=== PATIENT | female | born 1970 | race Caucasian/White ===

== ENCOUNTER 2016-09-14 09:29 | Emergency (ER) | payer MEDICAID ==
[~2016-09-14] VITALS: Ht 167.6 cm; Wt 84.0 kg
[~2016-09-14 09:29] MED LIST: AMLO-511 PO; LIB25 PO; METO-296 PO; SERT100T12 PO; TRAZ150 PO
[2016-09-14] MEDS ORDERED: ONDA4 PO (09:55)
[2016-09-14] MEDS ORDERED: SODIUM CHLORIDE 0.9% 1,000 ML IV ONE (10:45)
[2016-09-14 10:59] LABS: BASOPHILS % (AUTO) 1.3 % (0.0-2.0); HEMATOCRIT 36.5 % (36-46); HEMOGLOBIN 12.1 g/dL (12.0-16.0); LYMPHOCYTES # (AUTO) 1.6 K/uL (1.0-4.8); LYMPHOCYTES % (AUTO) 16.4 % (22.0-44.0); MEAN CORPUSCULAR HEMOGLOBIN 29.6 pg (26.0-34.0); MEAN CORPUSCULAR HGB CONC 33.2 G/dL (31.0-37.0); MEAN CORPUSCULAR VOLUME 89 fL (80-100); MONOCYTES % (AUTO) 10.5 % (2.0-9.0); NEUTROPHILS # (AUTO) 6.7 K/uL (1.8-7.7); NEUTROPHILS % (AUTO) 69.8 % (40.0-70.0); PLATELET COUNT (AUTO) 313 K/uL (150-450); RED BLOOD CELL COUNT(AUTO) 4.08 MIL/uL (4.00-5.20); RED CELL DISTRIBUTION WIDTH 15.5 % (11.5-14.5); WHITE BLOOD COUNT (AUTO) 9.6 K/uL (4.5-11.0)
[2016-09-14 11:12] LABS: ANION GAP 6 mmol/L (8-16); CALCIUM, TOTAL 8.9 mg/dL (8.8-10.5); CARBON DIOXIDE 29 mmol/L (22-29); CHLORIDE 102 mmol/L (98-107); CREATININE 0.71 mg/dL (0.60-1.30); GLOMERULAR FILTR. RATE CALC > 60 mL/min (>60); SODIUM SERUM 137 mmol/L (136-145); UREA NITROGEN, BLOOD 8 mg/dL (7-18)
[2016-09-14 11:18] LABS: ALANINE AMINOTRANSFERASE 122 U/L (12-78); ALBUMIN 3.3 g/dL (3.4-5.0); ASPARTATE AMINOTRANSFERASE 226 U/L (15-37); BILIRUBIN,TOTAL 0.4 mg/dL (0.1-1.0); TOTAL PROTEIN, SERUM 7.9 g/dL (6.4-8.2)
[2016-09-14 11:59] LABS: ADD UA MICROSCOPIC YES; APPEARANCE,URINE CLOUDY (CLEAR); GLUCOSE, URINE (UA) NEGATIVE (NEGATIVE); KETONES,URINE NEGATIVE (NEGATIVE); LEUKOCYTE ESTERASE ,URINE TRACE (NEGATIVE); OCCULT BLOOD,URINE NEGATIVE (NEGATIVE); PROTEIN,URINE NEGATIVE (NEGATIVE)
[2016-09-14 12:07] LABS: RBC,URINE None Seen /HPF (0-2); SQUAMOUS EPITHELIAL CELL,UR Moderate /LPF (None Seen)
[2016-09-14] MEDS ORDERED: ChlordiazePOXIDE HCL 25 MG CAPSULE PO ONE (12:45)
[2016-09-14 13:01] VITALS: BP 120/88
== END 2016-09-14 13:15 | disposition home or self-care (01) ==
LOC: EMS 09:33
DX: R56.9 Unspecified convulsions (principal); R41.82 Altered mental status, unspecified; F10.239 Alcohol dependence with withdrawal, unspecified; R25.1 Tremor, unspecified; I10 Essential (primary) hypertension; Z88.1 Allergy status to other antibiotic agents; Z88.8 Allergy status to other drugs, medicaments and biological substances; Y90.0 Blood alcohol level of less than 20 mg/100 ml
CPT/HCPCS: 36415; 70450; 80053; 80307; 81001; 85025; 96360; 99285; G0480; J7030

== ENCOUNTER 2022-03-24 19:15 | Inpatient (IN) | payer OTHER, MEDICAID ==
[~2022-03-24] VITALS: Ht 157.5 cm; Wt 94.1 kg
[~2022-03-24 19:15] MED LIST changes: +AMLO-257 PO; -AMLO-511 PO; -METO-296 PO; +ONDA-104 PO; +SERT-162 PO; -SERT100T12 PO; -TRAZ150 PO; +TRAZ150T80 PO
[2022-03-24 19:30] VITALS: BP 144/80
[2022-03-24] MEDS ORDERED: HYDRALAZINE CONTIV (20:55)
[2022-03-24] MEDS ORDERED: [UNRECOGNIZED DRUG - OTHER] CHEW (20:55)
[2022-03-24] MEDS ORDERED: QUET25TA PO (20:55)
[2022-03-24] MEDS ORDERED: LASIX CONTIV (20:55)
[2022-03-24] MEDS ORDERED: GEODON CHEW (20:55)
[2022-03-24] MEDS ORDERED: FOLI-130 GT (20:55)
[2022-03-24] MEDS ORDERED: DIAZ5TAB5 PO (20:55)
[2022-03-24] MEDS ORDERED: THIA100T92 GT (20:55)
[2022-03-24] MEDS ORDERED: INSLAN SQ (20:55)
[2022-03-24] MEDS ORDERED: [UNRECOGNIZED DRUG - REMARK] CERV (20:55)
[2022-03-24] MEDS ORDERED: LABETALOL CERV (20:55)
[2022-03-24] MEDS ORDERED: ENOX40SY14 SQ (20:55)
[2022-03-24] MEDS ORDERED: [UNRECOGNIZED DRUG - OTHER] CONTIV (20:55)
[2022-03-24] MEDS ORDERED: SOLUMEDROL CAUDAL (20:55)
[2022-03-24] MEDS ORDERED: [UNRECOGNIZED DRUG - OTHER] CONTEPI (20:55)
[2022-03-24] MEDS ORDERED: [UNRECOGNIZED DRUG - OTHER] CAUDAL SCH (21:00)
[2022-03-24] MEDS: QUEtiapine FUMARATE 25 MG TABLET PO SCH ×2 (21:00→21:49)
[2022-03-24] MEDS: INSULIN GLARGINE,HUM.REC.ANLOG 100 UNITS/ML SQ SCH (21:00)
[2022-03-24] MEDS: DIAZEPAM 5 MG TABLET PO SCH ×2 (21:00→21:49)
[2022-03-24] MEDS ORDERED: DEXTROSE 50%-WATER 25 GM/50 ML SYRINGE IVP PRN (21:15)
[2022-03-24] MEDS: INSULIN LISPRO 100 UNITS/ML SQ PRN (21:46)
[2022-03-24] MEDS: MethylPREDNISolone SOD SUCC 40 MG/ML VIAL IVP SCH (21:50)
[2022-03-24] MEDS ORDERED: [UNRECOGNIZED DRUG - OTHER] CONTEPI SCH (22:00)
[2022-03-24] MEDS ORDERED: [UNRECOGNIZED DRUG - OTHER] CONTIV SCH (22:00)
[2022-03-24 22:01] LABS: GLUCOMETER DEV NAME(LOC) 5N.3; GLUCOSE,POINT OF CARE 115 MG/DL (70-110)
[2022-03-24 22:21] LABS: BASOPHILS % (AUTO) 0.3 % (0.0-2.0); EOSINOPHILS % (AUTO) 0.5 % (1.0-6.0); HEMATOCRIT 40.9 % (36-46); LYMPHOCYTES # (AUTO) 1.9 K/uL (1.0-4.8); LYMPHOCYTES % (AUTO) 10.1 % (22.0-44.0); MEAN CORPUSCULAR HGB CONC 34.2 G/dL (31.0-37.0); MEAN CORPUSCULAR VOLUME 94 fL (80-100); MONOCYTES # (AUTO) 1.5 K/uL (0.1-1.0); NEUTROPHILS % (AUTO) 81.1 % (40.0-70.0); PLATELET COUNT (AUTO) 293 K/uL (150-450); RED BLOOD CELL COUNT(AUTO) 4.36 MIL/uL (4.00-5.20); RED CELL DISTRIBUTION WIDTH 14.1 % (11.5-14.5)
[2022-03-24 22:37] LABS: ANION GAP 9 mmol/L (8-16); CALCIUM, TOTAL 9.1 mg/dL (8.8-10.5); CARBON DIOXIDE 26 mmol/L (22-29); CHLORIDE 100 mmol/L (98-107); CREATININE 0.66 mg/dL (0.60-1.30); GLUCOSE,RANDOM 122 mg/dL (70-110); POTASSIUM 3.5 mmol/L (3.5-5.1); SODIUM SERUM 135 mmol/L (136-145); UREA NITROGEN, BLOOD 32 mg/dL (7-18)
[2022-03-24 22:38] LABS: GLOMERULAR FILTR. RATE CALC > 60 mL/min (>60)
[2022-03-24] MEDS: MAGNESIUM SULFATE 2 GM, MVI, ADULT NO.1 WITH VIT K 10 ML, THIAMINE 100 MG, FOLIC ACID 1... IV SCH ×5 (22:42)
[2022-03-24 22:43] LABS: ALANINE AMINOTRANSFERASE 115 U/L (12-78); ALKALINE PHOSPHATASE 66 U/L (46-116); ASPARTATE AMINOTRANSFERASE 94 U/L (15-37); BILIRUBIN,TOTAL 0.7 mg/dL (0.1-1.0); TOTAL PROTEIN, SERUM 7.3 g/dL (6.4-8.2)
[2022-03-25] MEDS ORDERED: HEPARIN SODIUM,PORCINE 5,000 UNITS/ML VIAL SQ SCH
[2022-03-25 00:05] VITALS: BP 140/75
[2022-03-25] MEDS: MORPHINE SULFATE 2 MG/ML SYRINGE IVP PRN ×6 (00:35→21:15)
[2022-03-25 04:12] VITALS: BP 120/78
[2022-03-25 05:36] LABS: C.DIFF GDH ANTIGEN, Stool Negative (Negative); C.DIFF TOXINS A&B, Stool Negative (Negative)
[2022-03-25 05:41] LABS: GLUCOMETER DEV NAME(LOC) 5N.3; GLUCOSE,POINT OF CARE 121 MG/DL (70-110)
[2022-03-25] MEDS: CefTRIAXone 1 GM/DEXTROSE 50 ML IV SCH (06:20)
[2022-03-25 06:34] LABS: BASOPHILS % (AUTO) 0.5 % (0.0-2.0); EOSINOPHILS % (AUTO) 0.2 % (1.0-6.0); HEMATOCRIT 39.5 % (36-46); HEMOGLOBIN 13.5 g/dL (12.0-16.0); LYMPHOCYTES # (AUTO) 1.4 K/uL (1.0-4.8); LYMPHOCYTES % (AUTO) 7.8 % (22.0-44.0); MEAN CORPUSCULAR HEMOGLOBIN 32.2 pg (26.0-34.0); MEAN CORPUSCULAR HGB CONC 34.3 G/dL (31.0-37.0); MEAN CORPUSCULAR VOLUME 94 fL (80-100); MONOCYTES # (AUTO) 1.6 K/uL (0.1-1.0); MONOCYTES % (AUTO) 8.8 % (2.0-9.0); NEUTROPHILS # (AUTO) 14.6 K/uL (1.8-7.7); NEUTROPHILS % (AUTO) 82.7 % (40.0-70.0); PLATELET COUNT (AUTO) 300 K/uL (150-450); RED CELL DISTRIBUTION WIDTH 14.2 % (11.5-14.5)
[2022-03-25 06:58] LABS: ANION GAP 9 mmol/L (8-16); CALCIUM, TOTAL 8.6 mg/dL (8.8-10.5); CARBON DIOXIDE 26 mmol/L (22-29); CHLORIDE 102 mmol/L (98-107); CREATININE 0.58 mg/dL (0.60-1.30); GLUCOSE,RANDOM 128 mg/dL (70-110); POTASSIUM 3.7 mmol/L (3.5-5.1); SODIUM SERUM 137 mmol/L (136-145); UREA NITROGEN, BLOOD 29 mg/dL (7-18)
[2022-03-25] MEDS ORDERED: LOPERAMIDE HCL 2 MG/15 ML SUSPENSION UDCUP GT ONE (07:00)
[2022-03-25 07:09] LABS: GLOMERULAR FILTR. RATE CALC > 60 mL/min (>60)
[2022-03-25 07:45] VITALS: BP 131/87
[2022-03-25] MEDS: MethylPREDNISolone SOD SUCC 40 MG/ML VIAL IVP SCH (08:27)
[2022-03-25] MEDS: ENOXAPARIN SODIUM 40 MG/0.4 ML PF SYRINGE SQ SCH (08:27)
[2022-03-25] MEDS: MetroNIDAZOLE 500 MG TABLET GT SCH ×3 (08:49→21:12)
[2022-03-25] MEDS: QUEtiapine FUMARATE 25 MG TABLET PO SCH ×2 (08:49→21:13)
[2022-03-25] MEDS: FOLIC ACID 1 MG TABLET GT SCH (08:49)
[2022-03-25] MEDS: DOXYCYCLINE HYCLATE 100 MG TABLET GT SCH ×2 (08:50→21:13)
[2022-03-25] MEDS: DIAZEPAM 5 MG TABLET PO SCH ×4 (08:50→21:13)
[2022-03-25] MEDS: INSULIN GLARGINE,HUM.REC.ANLOG 100 UNITS/ML SQ SCH ×2 (08:56→22:05)
[2022-03-25] MEDS ORDERED: THIAMINE 100 MG TABLET GT SCH (09:00)
[2022-03-25] MEDS: ONDANSETRON HCL 4 MG/2 ML VIAL IVP PRN (12:04)
[2022-03-25 12:12] VITALS: BP 150/96
[2022-03-25 15:06] LABS: GLUCOMETER DEV NAME(LOC) 5S.2B; GLUCOSE,POINT OF CARE 176 MG/DL (70-110)
[2022-03-25] MEDS: LACTOBACILLUS ACIDOPHILUS/BULGARICUS GRANULES PACKET PO SCH ×2 (16:21→21:13)
[2022-03-25 16:30] VITALS: BP 138/101
[2022-03-25 20:04] VITALS: BP 129/83
[2022-03-25] MEDS: FAMOTIDINE 10 MG/ML 2 ML VIAL IVP SCH (21:13)
[2022-03-25] MEDS: MAGNESIUM SULFATE 2 GM, MVI, ADULT NO.1 WITH VIT K 10 ML, THIAMINE 100 MG, FOLIC ACID 1... IV SCH ×5 (21:56)
[2022-03-25 22:01] LABS: GLUCOMETER DEV NAME(LOC) 5S.2B; GLUCOSE,POINT OF CARE 112 MG/DL (70-110)
[2022-03-25 22:02] LABS: GLUCOMETER DEV NAME(LOC) 5S.2B; GLUCOSE,POINT OF CARE 118 MG/DL (70-110)
[2022-03-26] VITALS: BP 135/99
[2022-03-26] MEDS: MORPHINE SULFATE 2 MG/ML SYRINGE IVP PRN ×2 (01:11→14:13)
[2022-03-26 04:04] VITALS: BP 148/83
[2022-03-26] MEDS: ACETAMINOPHEN 325 MG TABLET PO PRN (05:44)
[2022-03-26] MEDS: CefTRIAXone 1 GM/DEXTROSE 50 ML IV SCH (06:28)
[2022-03-26 06:45] LABS: BASOPHILS % (AUTO) 0.3 % (0.0-2.0); EOSINOPHILS % (AUTO) 2.1 % (1.0-6.0); HEMATOCRIT 39.8 % (36-46); HEMOGLOBIN 13.5 g/dL (12.0-16.0); LYMPHOCYTES # (AUTO) 1.6 K/uL (1.0-4.8); LYMPHOCYTES % (AUTO) 10.8 % (22.0-44.0); MEAN CORPUSCULAR HEMOGLOBIN 32.1 pg (26.0-34.0); MEAN CORPUSCULAR HGB CONC 33.8 G/dL (31.0-37.0); MEAN CORPUSCULAR VOLUME 95 fL (80-100); MONOCYTES # (AUTO) 1.4 K/uL (0.1-1.0); MONOCYTES % (AUTO) 9.4 % (2.0-9.0); NEUTROPHILS # (AUTO) 11.5 K/uL (1.8-7.7); NEUTROPHILS % (AUTO) 77.4 % (40.0-70.0); PLATELET COUNT (AUTO) 280 K/uL (150-450); RED BLOOD CELL COUNT(AUTO) 4.19 MIL/uL (4.00-5.20); RED CELL DISTRIBUTION WIDTH 14.1 % (11.5-14.5)
[2022-03-26 06:58] LABS: ANION GAP 12 mmol/L (8-16); CALCIUM, TOTAL 8.6 mg/dL (8.8-10.5); CARBON DIOXIDE 22 mmol/L (22-29); CHLORIDE 104 mmol/L (98-107); CREATININE 0.55 mg/dL (0.60-1.30); GLUCOSE,RANDOM 206 mg/dL (70-110); POTASSIUM 3.3 mmol/L (3.5-5.1); SODIUM SERUM 138 mmol/L (136-145); UREA NITROGEN, BLOOD 23 mg/dL (7-18)
[2022-03-26 07:00] LABS: GLOMERULAR FILTR. RATE CALC > 60 mL/min (>60)
[2022-03-26] MEDS: FOLIC ACID 1 MG TABLET GT SCH (07:43)
[2022-03-26] MEDS: QUEtiapine FUMARATE 25 MG TABLET PO SCH ×2 (07:43→21:49)
[2022-03-26] MEDS: DIAZEPAM 5 MG TABLET PO SCH ×4 (07:43→21:49)
[2022-03-26] MEDS: ENOXAPARIN SODIUM 40 MG/0.4 ML PF SYRINGE SQ SCH (07:44)
[2022-03-26] MEDS: DOXYCYCLINE HYCLATE 100 MG TABLET GT SCH (07:44)
[2022-03-26] MEDS: MethylPREDNISolone SOD SUCC 40 MG/ML VIAL IVP SCH (07:44)
[2022-03-26] MEDS: MetroNIDAZOLE 500 MG TABLET GT SCH (07:44)
[2022-03-26] MEDS: FAMOTIDINE 10 MG/ML 2 ML VIAL IVP SCH ×2 (07:44→21:47)
[2022-03-26] MEDS: LACTOBACILLUS ACIDOPHILUS/BULGARICUS GRANULES PACKET PO SCH ×3 (07:44→21:48)
[2022-03-26] MEDS: INSULIN GLARGINE,HUM.REC.ANLOG 100 UNITS/ML SQ SCH ×2 (07:47→22:05)
[2022-03-26 08:00] VITALS: BP 150/90
[2022-03-26] MEDS: DOXYCYCLINE HYCLATE 100 MG TABLET PO SCH ×2 (09:00→21:49)
[2022-03-26] MEDS: MetroNIDAZOLE 500 MG TABLET PO SCH ×3 (09:00→21:48)
[2022-03-26] MEDS: FOLIC ACID 1 MG TABLET PO SCH (09:00)
[2022-03-26 11:10] VITALS: BP 143/86
[2022-03-26] MEDS ORDERED: FUROSEMIDE 20 MG/2 ML VIAL IVP ONE (11:30)
[2022-03-26] MEDS: ONDANSETRON HCL 4 MG/2 ML VIAL IVP PRN (11:50)
[2022-03-26 12:11] LABS: GLUCOMETER DEV NAME(LOC) 5N.1C; GLUCOSE,POINT OF CARE 216 MG/DL (70-110)
[2022-03-26] MEDS ORDERED: POTASSIUM CHL 10 MEQ/WATER 50 ML IV PRN (15:00)
[2022-03-26] MEDS: POTASSIUM CHLORIDE 20 MEQ ER TABLET PO PRN (17:13)
[2022-03-26 17:30] VITALS: BP 127/80
[2022-03-26] MEDS: DICYCLOMINE HCL 20 MG TABLET PO PRN ×3 (18:30→21:49)
[2022-03-26] MEDS: ALBUTEROL SULFATE 2.5 MG/0.5 ML NEB SOLUTION NEB SCH ×2 (19:47→23:27)
[2022-03-26] MEDS: IPRATROPIUM BROMIDE 0.5 MG/2.5 ML NEB SOLUTION NEB SCH ×2 (19:47→23:27)
[2022-03-26 20:04] VITALS: BP 150/97
[2022-03-26 21:15] LABS: GLUCOMETER DEV NAME(LOC) 5S.2B; GLUCOSE,POINT OF CARE 155 MG/DL (70-110)
[2022-03-26 21:41] LABS: GLUCOMETER DEV NAME(LOC) 5S.2B; GLUCOSE,POINT OF CARE 94 MG/DL (70-110)
[2022-03-27 04:06] VITALS: BP 126/79
[2022-03-27] MEDS: ACETAMINOPHEN 325 MG TABLET PO PRN (04:08)
[2022-03-27] MEDS: IPRATROPIUM BROMIDE 0.5 MG/2.5 ML NEB SOLUTION NEB SCH ×6 (04:14→23:00)
[2022-03-27] MEDS: ALBUTEROL SULFATE 2.5 MG/0.5 ML NEB SOLUTION NEB SCH ×6 (04:14→23:00)
[2022-03-27] MEDS: CefTRIAXone 1 GM/DEXTROSE 50 ML IV SCH (06:06)
[2022-03-27 07:42] VITALS: BP 134/79
[2022-03-27 07:42] LABS: BASOPHILS % (AUTO) 0.5 % (0.0-2.0); EOSINOPHILS % (AUTO) 1.8 % (1.0-6.0); HEMATOCRIT 41.4 % (36-46); HEMOGLOBIN 14.3 g/dL (12.0-16.0); LYMPHOCYTES # (AUTO) 1.6 K/uL (1.0-4.8); LYMPHOCYTES % (AUTO) 10.5 % (22.0-44.0); MEAN CORPUSCULAR HEMOGLOBIN 32.5 pg (26.0-34.0); MEAN CORPUSCULAR HGB CONC 34.4 G/dL (31.0-37.0); MEAN CORPUSCULAR VOLUME 94 fL (80-100); MONOCYTES # (AUTO) 1.6 K/uL (0.1-1.0); MONOCYTES % (AUTO) 10.2 % (2.0-9.0); PLATELET COUNT (AUTO) 285 K/uL (150-450); RED BLOOD CELL COUNT(AUTO) 4.39 MIL/uL (4.00-5.20)
[2022-03-27 07:52] LABS: ANION GAP 10 mmol/L (8-16); CALCIUM, TOTAL 9.1 mg/dL (8.8-10.5); CARBON DIOXIDE 23 mmol/L (22-29); CHLORIDE 105 mmol/L (98-107); CREATININE 0.62 mg/dL (0.60-1.30); GLUCOSE,RANDOM 160 mg/dL (70-110); POTASSIUM 3.7 mmol/L (3.5-5.1); SODIUM SERUM 138 mmol/L (136-145); UREA NITROGEN, BLOOD 25 mg/dL (7-18)
[2022-03-27 07:53] LABS: GLOMERULAR FILTR. RATE CALC > 60 mL/min (>60)
[2022-03-27] MEDS: MethylPREDNISolone SOD SUCC 40 MG/ML VIAL IVP SCH (09:51)
[2022-03-27] MEDS: LACTOBACILLUS ACIDOPHILUS/BULGARICUS GRANULES PACKET PO SCH ×3 (09:51→23:33)
[2022-03-27] MEDS: FAMOTIDINE 10 MG/ML 2 ML VIAL IVP SCH (09:52)
[2022-03-27] MEDS: DOXYCYCLINE HYCLATE 100 MG TABLET PO SCH ×2 (09:52→21:35)
[2022-03-27] MEDS: ENOXAPARIN SODIUM 40 MG/0.4 ML PF SYRINGE SQ SCH (09:52)
[2022-03-27] MEDS: QUEtiapine FUMARATE 25 MG TABLET PO SCH ×2 (09:52→21:34)
[2022-03-27] MEDS: MetroNIDAZOLE 500 MG TABLET PO SCH ×2 (09:52→21:34)
[2022-03-27] MEDS: FOLIC ACID 1 MG TABLET PO SCH (09:52)
[2022-03-27] MEDS: DIAZEPAM 5 MG TABLET PO SCH ×4 (09:52→21:34)
[2022-03-27] MEDS: INSULIN GLARGINE,HUM.REC.ANLOG 100 UNITS/ML SQ SCH ×2 (10:01→21:37)
[2022-03-27 12:00] VITALS: BP 124/76
[2022-03-27] MEDS ORDERED: PANT40TA54 PO (12:52)
[2022-03-27] MEDS ORDERED: NAPR-1025 PO (12:52)
[2022-03-27] MEDS ORDERED: TRAZ-257 PO (12:52)
[2022-03-27] MEDS ORDERED: HYDR200T4 PO (12:52)
[2022-03-27] MEDS ORDERED: PRED5TAB2 PO (12:52)
[2022-03-27] MEDS ORDERED: ATOR20TA65 PO (12:52)
[2022-03-27] MEDS ORDERED: METF-1211 PO (12:52)
[2022-03-27] MEDS ORDERED: METH2.5T6 PO (12:52)
[2022-03-27] MEDS ORDERED: FOLI-130 PO (12:53)
[2022-03-27] MEDS ORDERED: THIA100T80 PO (12:54)
[2022-03-27] MEDS ORDERED: DIAZ5TAB5 PO (12:55)
[2022-03-27] MEDS ORDERED: QUET25TA PO (12:55)
[2022-03-27 20:51] VITALS: BP 158/99
[2022-03-27 23:40] VITALS: BP 143/95
[2022-03-27] MEDS: MORPHINE SULFATE 2 MG/ML SYRINGE IVP PRN (23:51)
[2022-03-28] MEDS: ALBUTEROL SULFATE 2.5 MG/0.5 ML NEB SOLUTION NEB SCH ×6 (03:00→23:00)
[2022-03-28] MEDS: IPRATROPIUM BROMIDE 0.5 MG/2.5 ML NEB SOLUTION NEB SCH ×6 (03:00→23:00)
[2022-03-28 04:14] VITALS: BP 156/98
[2022-03-28] MEDS: MORPHINE SULFATE 2 MG/ML SYRINGE IVP PRN ×2 (04:17→17:01)
[2022-03-28] MEDS ORDERED: SODIUM CHLORIDE 0.9% 100 ML ONE (06:34)
[2022-03-28] MEDS: CefTRIAXone 1 GM/DEXTROSE 50 ML IV SCH (06:35)
[2022-03-28 07:28] VITALS: BP 157/101
[2022-03-28 07:51] LABS: GLUCOMETER DEV NAME(LOC) 5N.1C; GLUCOSE,POINT OF CARE 144 MG/DL (70-110)
[2022-03-28 07:51] LABS: GLUCOMETER DEV NAME(LOC) 5N.1C; GLUCOSE,POINT OF CARE 141 MG/DL (70-110)
[2022-03-28 08:31] LABS: BASOPHILS % (AUTO) 1.3 % (0.0-2.0); EOSINOPHILS % (AUTO) 0.9 % (1.0-6.0); HEMATOCRIT 44.4 % (36-46); HEMOGLOBIN 14.9 g/dL (12.0-16.0); LYMPHOCYTES # (AUTO) 2.3 K/uL (1.0-4.8); LYMPHOCYTES % (AUTO) 10.6 % (22.0-44.0); MEAN CORPUSCULAR HEMOGLOBIN 31.7 pg (26.0-34.0); MEAN CORPUSCULAR HGB CONC 33.5 G/dL (31.0-37.0); MEAN CORPUSCULAR VOLUME 95 fL (80-100); MONOCYTES # (AUTO) 1.7 K/uL (0.1-1.0); MONOCYTES % (AUTO) 7.6 % (2.0-9.0); NEUTROPHILS # (AUTO) 17.7 K/uL (1.8-7.7); NEUTROPHILS % (AUTO) 79.6 % (40.0-70.0); PLATELET COUNT (AUTO) 328 K/uL (150-450); RED CELL DISTRIBUTION WIDTH 13.8 % (11.5-14.5)
[2022-03-28 08:42] LABS: ANION GAP 13 mmol/L (8-16); CALCIUM, TOTAL 9.3 mg/dL (8.8-10.5); CARBON DIOXIDE 22 mmol/L (22-29); CHLORIDE 102 mmol/L (98-107); CREATININE 0.62 mg/dL (0.60-1.30); GLOMERULAR FILTR. RATE CALC > 60 mL/min (>60); GLUCOSE,RANDOM 164 mg/dL (70-110); POTASSIUM 3.6 mmol/L (3.5-5.1); SODIUM SERUM 137 mmol/L (136-145); UREA NITROGEN, BLOOD 21 mg/dL (7-18)
[2022-03-28 09:16] LABS: GLUCOMETER DEV NAME(LOC) 5S.2B; GLUCOSE,POINT OF CARE 135 MG/DL (70-110)
[2022-03-28] MEDS: ENOXAPARIN SODIUM 40 MG/0.4 ML PF SYRINGE SQ SCH (10:07)
[2022-03-28] MEDS: DICYCLOMINE HCL 20 MG TABLET PO PRN (10:08)
[2022-03-28] MEDS: LACTOBACILLUS ACIDOPHILUS/BULGARICUS GRANULES PACKET PO SCH ×2 (10:08→17:01)
[2022-03-28] MEDS: FOLIC ACID 1 MG TABLET PO SCH (10:08)
[2022-03-28] MEDS: QUEtiapine FUMARATE 25 MG TABLET PO SCH ×2 (10:08→20:52)
[2022-03-28] MEDS: DOXYCYCLINE HYCLATE 100 MG TABLET PO SCH ×2 (10:08→20:53)
[2022-03-28] MEDS: DIAZEPAM 5 MG TABLET PO SCH (10:09)
[2022-03-28] MEDS: MetroNIDAZOLE 500 MG TABLET PO SCH ×3 (10:09→20:52)
[2022-03-28] MEDS: MethylPREDNISolone SOD SUCC 40 MG/ML VIAL IVP SCH (10:09)
[2022-03-28] MEDS: INSULIN GLARGINE,HUM.REC.ANLOG 100 UNITS/ML SQ SCH ×2 (10:11→20:54)
[2022-03-28] MEDS ORDERED: DIAZEPAM 5 MG TABLET PO PRN (11:30)
[2022-03-28 16:09] LABS: ABG CARBOXYHEMOGLOBIN 0.9 % (0.0-1.5); ABG HCO3 23.4 mmol/L (22.0-26.0); ABG METHEMOGLOBIN 0.3 % (0.0-1.5); ABG OXYGEN CONTENT 19.8 mL/dL (15.0-23.0); ABG OXYGEN SATURATION 94.5 % (95.0-98.0); ABG OXYHEMOGLOBIN 93.4 % (94.0-100.0); ABG PCO2 33 mmHg (35-45); ABG PH 7.444 (7.35-7.450); ABG TOTAL HEMOGLOBIN 15.1 G/dL (12.0-18.0); SOURCE, BLOOD GAS ARTERIAL; TEMPERATURE, FAHRENHEIT, BG 98.3 FAHREN (96.0-98.6)
[2022-03-28 16:10] LABS: O2 DEVICE,BLOOD GAS NC (ROOM AIR); SITE, BLOOD GAS LFT BRACHIAL
[2022-03-28] MEDS: INSULIN LISPRO 100 UNITS/ML SQ PRN (17:24)
[2022-03-28 20:36] LABS: GLUCOMETER DEV NAME(LOC) 5N.1C; GLUCOSE,POINT OF CARE 205 MG/DL (70-110)
[2022-03-28 20:43] VITALS: BP 147/92
[2022-03-29] VITALS (8 sets, daily range): BP systolic 137–166; BP diastolic 89–114
[2022-03-29 02:16] LABS: GLUCOMETER DEV NAME(LOC) 5N.1C; GLUCOSE,POINT OF CARE 141 MG/DL (70-110)
[2022-03-29 02:16] LABS: GLUCOMETER DEV NAME(LOC) 5S.2B; GLUCOSE,POINT OF CARE 163 MG/DL (70-110)
[2022-03-29] MEDS: MORPHINE SULFATE 2 MG/ML SYRINGE IVP PRN ×4 (02:17→20:51)
[2022-03-29] MEDS: ALBUTEROL SULFATE 2.5 MG/0.5 ML NEB SOLUTION NEB SCH ×6 (03:00→23:00)
[2022-03-29] MEDS: IPRATROPIUM BROMIDE 0.5 MG/2.5 ML NEB SOLUTION NEB SCH ×6 (03:00→23:00)
[2022-03-29] MEDS: CefTRIAXone 1 GM/DEXTROSE 50 ML IV SCH (06:01)
[2022-03-29 08:06] LABS: GLUCOMETER DEV NAME(LOC) 5S.2B; GLUCOSE,POINT OF CARE 146 MG/DL (70-110)
[2022-03-29] MEDS: LACTOBACILLUS ACIDOPHILUS/BULGARICUS GRANULES PACKET PO SCH ×4 (08:44→23:37)
[2022-03-29] MEDS: PredniSONE 10 MG TABLET PO SCH (08:44)
[2022-03-29] MEDS: DOXYCYCLINE HYCLATE 100 MG TABLET PO SCH ×2 (08:45→20:48)
[2022-03-29] MEDS: FOLIC ACID 1 MG TABLET PO SCH (08:45)
[2022-03-29] MEDS: ENOXAPARIN SODIUM 40 MG/0.4 ML PF SYRINGE SQ SCH (08:45)
[2022-03-29] MEDS: QUEtiapine FUMARATE 25 MG TABLET PO SCH ×2 (08:45→20:48)
[2022-03-29] MEDS: MetroNIDAZOLE 500 MG TABLET PO SCH ×3 (08:45→20:46)
[2022-03-29] MEDS: INSULIN GLARGINE,HUM.REC.ANLOG 100 UNITS/ML SQ SCH ×2 (08:46→20:50)
[2022-03-29] MEDS: MethylPREDNISolone SOD SUCC 40 MG/ML VIAL IVP SCH (09:00)
[2022-03-29 09:16] LABS: GLUCOMETER DEV NAME(LOC) 5S.2B; GLUCOSE,POINT OF CARE 144 MG/DL (70-110)
[2022-03-29] MEDS: INSULIN LISPRO 100 UNITS/ML SQ PRN ×2 (11:43→17:56)
[2022-03-29 11:56] LABS: GLUCOMETER DEV NAME(LOC) 5S.2B; GLUCOSE,POINT OF CARE 156 MG/DL (70-110)
[2022-03-29] MEDS: DICYCLOMINE HCL 20 MG TABLET PO PRN (12:06)
[2022-03-29 20:41] LABS: GLUCOMETER DEV NAME(LOC) 5S.2B; GLUCOSE,POINT OF CARE 197 MG/DL (70-110)
[2022-03-29 21:06] LABS: GLUCOMETER DEV NAME(LOC) 5S.2B; GLUCOSE,POINT OF CARE 112 MG/DL (70-110)
[2022-03-30] VITALS (7 sets, daily range): BP systolic 122–157; BP diastolic 78–98
[2022-03-30] MEDS ORDERED: HydrALAZINE HCL 20 MG/ML VIAL IVP ONE (01:00)
[2022-03-30] MEDS: MORPHINE SULFATE 2 MG/ML SYRINGE IVP PRN ×3 (01:56→16:57)
[2022-03-30] MEDS: ALBUTEROL SULFATE 2.5 MG/0.5 ML NEB SOLUTION NEB SCH ×6 (03:00→23:38)
[2022-03-30] MEDS: IPRATROPIUM BROMIDE 0.5 MG/2.5 ML NEB SOLUTION NEB SCH ×6 (03:00→23:38)
[2022-03-30] MEDS ORDERED: SODIUM CHLORIDE 0.9% 100 ML ONE (06:02)
[2022-03-30] MEDS: CefTRIAXone 1 GM/DEXTROSE 50 ML IV SCH (06:19)
[2022-03-30] MEDS: QUEtiapine FUMARATE 25 MG TABLET PO SCH ×2 (08:20→20:01)
[2022-03-30] MEDS: FOLIC ACID 1 MG TABLET PO SCH (08:20)
[2022-03-30] MEDS: DOXYCYCLINE HYCLATE 100 MG TABLET PO SCH ×2 (08:20→20:00)
[2022-03-30] MEDS: MetroNIDAZOLE 500 MG TABLET PO SCH ×3 (08:20→20:00)
[2022-03-30] MEDS: LACTOBACILLUS ACIDOPHILUS/BULGARICUS GRANULES PACKET PO SCH ×2 (08:20→17:01)
[2022-03-30] MEDS: PredniSONE 10 MG TABLET PO SCH (08:21)
[2022-03-30] MEDS: ENOXAPARIN SODIUM 40 MG/0.4 ML PF SYRINGE SQ SCH (08:21)
[2022-03-30] MEDS: INSULIN GLARGINE,HUM.REC.ANLOG 100 UNITS/ML SQ SCH ×2 (08:23→20:02)
[2022-03-30 11:47] LABS: GLUCOMETER DEV NAME(LOC) 5N.1C; GLUCOSE,POINT OF CARE 129 MG/DL (70-110)
[2022-03-30 11:47] LABS: GLUCOMETER DEV NAME(LOC) 5N.1C; GLUCOSE,POINT OF CARE 130 MG/DL (70-110)
[2022-03-30] MEDS: INSULIN LISPRO 100 UNITS/ML SQ PRN ×2 (11:53→20:03)
[2022-03-30 12:21] LABS: GLUCOMETER DEV NAME(LOC) 5S.2B; GLUCOSE,POINT OF CARE 153 MG/DL (70-110)
[2022-03-30 22:51] LABS: GLUCOMETER DEV NAME(LOC) 5S.2B; GLUCOSE,POINT OF CARE 135 MG/DL (70-110)
[2022-03-31] MEDS: LACTOBACILLUS ACIDOPHILUS/BULGARICUS GRANULES PACKET PO SCH ×3 (00:04→16:00)
[2022-03-31] MEDS: ALBUTEROL SULFATE 2.5 MG/0.5 ML NEB SOLUTION NEB SCH ×6 (02:34→22:53)
[2022-03-31] MEDS: IPRATROPIUM BROMIDE 0.5 MG/2.5 ML NEB SOLUTION NEB SCH ×6 (02:34→22:53)
[2022-03-31 04:35] VITALS: BP 135/91
[2022-03-31 06:11] LABS: GLUCOMETER DEV NAME(LOC) 5S.2B; GLUCOSE,POINT OF CARE 75 MG/DL (70-110)
[2022-03-31] MEDS: CefTRIAXone 1 GM/DEXTROSE 50 ML IV SCH (06:28)
[2022-03-31 07:23] VITALS: BP 128/82
[2022-03-31] MEDS: FOLIC ACID 1 MG TABLET PO SCH (08:42)
[2022-03-31] MEDS: QUEtiapine FUMARATE 25 MG TABLET PO SCH ×2 (08:42→20:27)
[2022-03-31] MEDS: PredniSONE 10 MG TABLET PO SCH (08:42)
[2022-03-31] MEDS: MetroNIDAZOLE 500 MG TABLET PO SCH ×3 (08:42→20:27)
[2022-03-31] MEDS: DOXYCYCLINE HYCLATE 100 MG TABLET PO SCH ×2 (08:42→20:27)
[2022-03-31] MEDS: INSULIN GLARGINE,HUM.REC.ANLOG 100 UNITS/ML SQ SCH ×2 (08:43→20:33)
[2022-03-31] MEDS: ENOXAPARIN SODIUM 40 MG/0.4 ML PF SYRINGE SQ SCH (08:43)
[2022-03-31] MEDS: MORPHINE SULFATE 2 MG/ML SYRINGE IVP PRN ×3 (08:43→20:27)
[2022-03-31 10:52] VITALS: BP 132/78
[2022-03-31] MEDS: INSULIN LISPRO 100 UNITS/ML SQ PRN ×2 (12:31→16:56)
[2022-03-31 12:46] LABS: BASOPHILS % (AUTO) 0.4 % (0.0-2.0); EOSINOPHILS % (AUTO) 0.6 % (1.0-6.0); HEMATOCRIT 38.1 % (36-46); LYMPHOCYTES # (AUTO) 1.2 K/uL (1.0-4.8); LYMPHOCYTES % (AUTO) 5.7 % (22.0-44.0); MEAN CORPUSCULAR HEMOGLOBIN 31.9 pg (26.0-34.0); MEAN CORPUSCULAR VOLUME 94 fL (80-100); MONOCYTES # (AUTO) 0.4 K/uL (0.1-1.0); NEUTROPHILS # (AUTO) 19.3 K/uL (1.8-7.7); PLATELET COUNT (AUTO) 316 K/uL (150-450); RED BLOOD CELL COUNT(AUTO) 4.06 MIL/uL (4.00-5.20); RED CELL DISTRIBUTION WIDTH 13.5 % (11.5-14.5)
[2022-03-31 12:49] LABS: NEUTROPHILS % (AUTO) 91.3 % (40.0-70.0)
[2022-03-31 15:36] VITALS: BP 130/80
[2022-03-31 18:37] LABS: GLUCOMETER DEV NAME(LOC) 5N.1C; GLUCOSE,POINT OF CARE 164 MG/DL (70-110)
[2022-03-31 19:21] LABS: GLUCOMETER DEV NAME(LOC) 5N.3; GLUCOSE,POINT OF CARE 149 MG/DL (70-110)
[2022-03-31 20:15] VITALS: BP 149/86
[2022-04-01] VITALS (7 sets, daily range): BP systolic 111–145; BP diastolic 79–91
[2022-04-01] MEDS: LACTOBACILLUS ACIDOPHILUS/BULGARICUS GRANULES PACKET PO SCH ×3 (00:03→15:37)
[2022-04-01] MEDS: ALBUTEROL SULFATE 2.5 MG/0.5 ML NEB SOLUTION NEB SCH ×6 (03:00→23:43)
[2022-04-01] MEDS: IPRATROPIUM BROMIDE 0.5 MG/2.5 ML NEB SOLUTION NEB SCH ×6 (03:00→23:43)
[2022-04-01] MEDS: CefTRIAXone 1 GM/DEXTROSE 50 ML IV SCH (06:17)
[2022-04-01] MEDS: MORPHINE SULFATE 2 MG/ML SYRINGE IVP PRN ×4 (06:54→21:12)
[2022-04-01] MEDS: DOXYCYCLINE HYCLATE 100 MG TABLET PO SCH ×2 (08:50→21:12)
[2022-04-01] MEDS: FOLIC ACID 1 MG TABLET PO SCH (08:50)
[2022-04-01] MEDS: MetroNIDAZOLE 500 MG TABLET PO SCH ×3 (08:50→21:13)
[2022-04-01] MEDS: PredniSONE 10 MG TABLET PO SCH (08:50)
[2022-04-01] MEDS: QUEtiapine FUMARATE 25 MG TABLET PO SCH ×2 (08:50→21:13)
[2022-04-01] MEDS: INSULIN GLARGINE,HUM.REC.ANLOG 100 UNITS/ML SQ SCH ×2 (08:51→21:14)
[2022-04-01] MEDS: ENOXAPARIN SODIUM 40 MG/0.4 ML PF SYRINGE SQ SCH (08:51)
[2022-04-01] MEDS: INSULIN LISPRO 100 UNITS/ML SQ PRN (17:29)
[2022-04-01 20:57] LABS: GLUCOMETER DEV NAME(LOC) 5S.2B; GLUCOSE,POINT OF CARE 200 MG/DL (70-110)
[2022-04-01 20:57] LABS: GLUCOMETER DEV NAME(LOC) 5S.2B; GLUCOSE,POINT OF CARE 123 MG/DL (70-110)
[2022-04-01 21:41] LABS: GLUCOMETER DEV NAME(LOC) 5N.3; GLUCOSE,POINT OF CARE 91 MG/DL (70-110)
[2022-04-01 21:41] LABS: GLUCOMETER DEV NAME(LOC) 5N.3; GLUCOSE,POINT OF CARE 96 MG/DL (70-110)
[2022-04-02] MEDS: LACTOBACILLUS ACIDOPHILUS/BULGARICUS GRANULES PACKET PO SCH ×3 (00:13→16:30)
[2022-04-02] MEDS: ALBUTEROL SULFATE 2.5 MG/0.5 ML NEB SOLUTION NEB SCH ×6 (03:00→23:00)
[2022-04-02] MEDS: IPRATROPIUM BROMIDE 0.5 MG/2.5 ML NEB SOLUTION NEB SCH ×6 (03:00→23:00)
[2022-04-02 05:10] VITALS: BP 146/90
[2022-04-02 06:42] LABS: BASOPHILS % (AUTO) 0.6 % (0.0-2.0); EOSINOPHILS % (AUTO) 1.7 % (1.0-6.0); HEMATOCRIT 34.9 % (36-46); LYMPHOCYTES % (AUTO) 32.9 % (22.0-44.0); MEAN CORPUSCULAR HEMOGLOBIN 32.3 pg (26.0-34.0); MEAN CORPUSCULAR HGB CONC 34.2 G/dL (31.0-37.0); MEAN CORPUSCULAR VOLUME 94 fL (80-100); MONOCYTES # (AUTO) 0.6 K/uL (0.1-1.0); MONOCYTES % (AUTO) 5.2 % (2.0-9.0); NEUTROPHILS # (AUTO) 7.3 K/uL (1.8-7.7); NEUTROPHILS % (AUTO) 59.6 % (40.0-70.0); PLATELET COUNT (AUTO) 311 K/uL (150-450); RED CELL DISTRIBUTION WIDTH 13.1 % (11.5-14.5)
[2022-04-02 06:47] LABS: GLUCOMETER DEV NAME(LOC) 5S.1B; GLUCOSE,POINT OF CARE 101 MG/DL (70-110)
[2022-04-02 06:48] LABS: GLUCOMETER DEV NAME(LOC) 5S.1B; GLUCOSE,POINT OF CARE 73 MG/DL (70-110)
[2022-04-02] MEDS: MORPHINE SULFATE 2 MG/ML SYRINGE IVP PRN ×3 (06:56→20:09)
[2022-04-02] MEDS: CefTRIAXone 1 GM/DEXTROSE 50 ML IV SCH (06:57)
[2022-04-02 07:23] LABS: ALANINE AMINOTRANSFERASE 39 U/L (12-78); ALBUMIN 2.7 g/dL (3.4-5.0); ALKALINE PHOSPHATASE 43 U/L (46-116); ANION GAP 11 mmol/L (8-16); ASPARTATE AMINOTRANSFERASE 26 U/L (15-37); BILIRUBIN,TOTAL 0.5 mg/dL (0.1-1.0); CALCIUM, TOTAL 8.9 mg/dL (8.8-10.5); CARBON DIOXIDE 25 mmol/L (22-29); CHLORIDE 106 mmol/L (98-107); CREATININE 0.59 mg/dL (0.60-1.30); GLUCOSE,RANDOM 79 mg/dL (70-110); POTASSIUM 3.2 mmol/L (3.5-5.1); SODIUM SERUM 142 mmol/L (136-145); TOTAL PROTEIN, SERUM 6.2 g/dL (6.4-8.2); UREA NITROGEN, BLOOD 14 mg/dL (7-18)
[2022-04-02 07:26] LABS: GLOMERULAR FILTR. RATE CALC > 60 mL/min (>60)
[2022-04-02] MEDS: PredniSONE 10 MG TABLET PO SCH (08:23)
[2022-04-02] MEDS: MetroNIDAZOLE 500 MG TABLET PO SCH ×3 (08:23→20:09)
[2022-04-02] MEDS: DOXYCYCLINE HYCLATE 100 MG TABLET PO SCH ×2 (08:23→20:09)
[2022-04-02] MEDS: QUEtiapine FUMARATE 25 MG TABLET PO SCH ×2 (08:24→20:09)
[2022-04-02] MEDS: FOLIC ACID 1 MG TABLET PO SCH (08:25)
[2022-04-02] MEDS: ENOXAPARIN SODIUM 40 MG/0.4 ML PF SYRINGE SQ SCH (08:26)
[2022-04-02] MEDS: INSULIN GLARGINE,HUM.REC.ANLOG 100 UNITS/ML SQ SCH ×2 (08:33→20:10)
[2022-04-02] MEDS: INSULIN LISPRO 100 UNITS/ML SQ PRN (12:47)
[2022-04-02] MEDS: POTASSIUM CHLORIDE 20 MEQ ER TABLET PO PRN (12:57)
[2022-04-02 19:02] LABS: GLUCOMETER DEV NAME(LOC) 5N.1C; GLUCOSE,POINT OF CARE 161 MG/DL (70-110)
[2022-04-02 19:02] LABS: GLUCOMETER DEV NAME(LOC) 5N.1C; GLUCOSE,POINT OF CARE 127 MG/DL (70-110)
[2022-04-02] MEDS: BENZONATATE 100 MG CAPSULE PO PRN (20:09)
[2022-04-02 20:15] VITALS: BP 142/79
[2022-04-03 00:42] VITALS: BP 138/78
[2022-04-03] MEDS: ALBUTEROL SULFATE 2.5 MG/0.5 ML NEB SOLUTION NEB SCH (03:00)
[2022-04-03] MEDS: IPRATROPIUM BROMIDE 0.5 MG/2.5 ML NEB SOLUTION NEB SCH (03:00)
[2022-04-03] MEDS: MORPHINE SULFATE 2 MG/ML SYRINGE IVP PRN ×3 (03:50→13:46)
[2022-04-03 03:51] LABS: GLUCOMETER DEV NAME(LOC) 5S.1B; GLUCOSE,POINT OF CARE 105 MG/DL (70-110)
[2022-04-03 04:32] VITALS: BP 123/84
[2022-04-03 06:39] LABS: BASOPHILS % (AUTO) 0.8 % (0.0-2.0); EOSINOPHILS % (AUTO) 1.7 % (1.0-6.0); HEMATOCRIT 35.6 % (36-46); LYMPHOCYTES # (AUTO) 4.2 K/uL (1.0-4.8); MEAN CORPUSCULAR HEMOGLOBIN 32.3 pg (26.0-34.0); MEAN CORPUSCULAR HGB CONC 33.8 G/dL (31.0-37.0); MEAN CORPUSCULAR VOLUME 96 fL (80-100); MONOCYTES # (AUTO) 0.6 K/uL (0.1-1.0); MONOCYTES % (AUTO) 4.9 % (2.0-9.0); NEUTROPHILS # (AUTO) 7.2 K/uL (1.8-7.7); NEUTROPHILS % (AUTO) 58.6 % (40.0-70.0); PLATELET COUNT (AUTO) 302 K/uL (150-450); RED BLOOD CELL COUNT(AUTO) 3.72 MIL/uL (4.00-5.20)
[2022-04-03] MEDS: CefTRIAXone 1 GM/DEXTROSE 50 ML IV SCH (06:52)
[2022-04-03 06:56] LABS: ANION GAP 9 mmol/L (8-16); CARBON DIOXIDE 25 mmol/L (22-29); CHLORIDE 106 mmol/L (98-107); GLUCOSE,RANDOM 78 mg/dL (70-110); POTASSIUM 3.3 mmol/L (3.5-5.1); SODIUM SERUM 140 mmol/L (136-145); UREA NITROGEN, BLOOD 14 mg/dL (7-18)
[2022-04-03 06:59] LABS: GLOMERULAR FILTR. RATE CALC > 60 mL/min (>60)
[2022-04-03 07:32] VITALS: BP 137/78
[2022-04-03] MEDS: INSULIN GLARGINE,HUM.REC.ANLOG 100 UNITS/ML SQ SCH (09:00)
[2022-04-03] MEDS: MetroNIDAZOLE 500 MG TABLET PO SCH (09:58)
[2022-04-03] MEDS: LACTOBACILLUS ACIDOPHILUS/BULGARICUS GRANULES PACKET PO SCH ×2 (09:58)
[2022-04-03] MEDS: ENOXAPARIN SODIUM 40 MG/0.4 ML PF SYRINGE SQ SCH (09:58)
[2022-04-03] MEDS: DOXYCYCLINE HYCLATE 100 MG TABLET PO SCH (09:58)
[2022-04-03] MEDS: QUEtiapine FUMARATE 25 MG TABLET PO SCH (09:58)
[2022-04-03] MEDS: PredniSONE 10 MG TABLET PO SCH (09:59)
[2022-04-03] MEDS: FOLIC ACID 1 MG TABLET PO SCH (09:59)
[2022-04-03] MEDS: BENZONATATE 100 MG CAPSULE PO PRN (10:09)
[2022-04-03 11:29] VITALS: BP 104/64
[2022-04-03 12:12] LABS: GLUCOMETER DEV NAME(LOC) 5S.1B; GLUCOSE,POINT OF CARE 122 MG/DL (70-110)
[2022-04-03] MEDS: POTASSIUM CHLORIDE 20 MEQ ER TABLET PO PRN (12:25)
[2022-04-03 12:31] LABS: GLUCOMETER DEV NAME(LOC) 5N.3; GLUCOSE,POINT OF CARE 71 MG/DL (70-110)
[2022-04-03 12:36] LABS: GLUCOMETER DEV NAME(LOC) 5S.1B; GLUCOSE,POINT OF CARE 108 MG/DL (70-110)
== END 2022-04-03 14:05 | DRG 91 ==
LOC: 5S 19:15
PROVIDERS: ADMIT Internal Medicine; ATTEND Internal Medicine
PROC: 5A09357 Assistance with Respiratory Ventilation, Less than 24 Consecutive Hours, Continuous Positive Airway Pressure (ICD-10-PCS; principal; 2022-03-26)
PROC: 5A09357 Assistance with Respiratory Ventilation, Less than 24 Consecutive Hours, Continuous Positive Airway Pressure (ICD-10-PCS; 2022-03-28)
DX: G92.8 Other toxic encephalopathy (principal); J69.0 Pneumonitis due to inhalation of food and vomit; J80 Acute respiratory distress syndrome; R45.851 Suicidal ideations; F10.10 Alcohol abuse, uncomplicated; K58.0 Irritable bowel syndrome with diarrhea; I10 Essential (primary) hypertension; F19.10 Other psychoactive substance abuse, uncomplicated; F32.A Depression, unspecified; Z91.81 History of falling; Z75.1 Person awaiting admission to adequate facility elsewhere; Z79.899 Other long term (current) drug therapy
CPT/HCPCS: 36600; 71045; 80048; 80053; 82805; 82962; 83735; 84132; 84145; 85025; 87081; 87324; 87449; 89055; 94640; 94660; G0378; J0360; J0696; J1650; J1815; J1940; J2270; J2405; J2920; J3411; J3475; J3490; J7030; J7050; 36415-L1; 36415-TC; J7512; J7613; Z7610